=== PATIENT | male | born 1965 | race Caucasian/White ===

== ENCOUNTER 2021-01-13 09:33 | Emergency (ER) | payer OTHER ==
[2021-01-13 11:24] LABS: BASOPHIL 0.2 % (0-2); EOSINOPHIL 0 % (0-5); HCT 50.2 % (42.0-52.0); HGB 17.1 g/dl (13.2-18.0); LYMPHOCYTE 11.6 % (15-48); MCH 30.1 pg (25.0-31.0); MCHC 34.1 g/dL (32.0-36.0); MCV 88.2 fL (78.0-100.0); MONOCYTE 5.3 % (0-12); MPV 10.5 fL (6.0-9.5); NEUTROPHIL 82.5 % (41-80); NRBC 0; PLT 159 K/uL (150-400); RBC 5.69 M/uL (4.70-6.00); RDW 12.6 % (11.5-14.0); WBC 4.5 K/uL (4.0-10.5)
[2021-01-13 11:27] LABS: IRON % SATURATION 10.4 %SAT (20-50)
[2021-01-13 11:32] LABS: LACTIC ACID 1.2 mmol/L (0.4-1.9)
[2021-01-13 11:36] LABS: PRO-BNP 33 pg/mL (<125)
[2021-01-13 12:04] LABS: ALBUMIN 3.8 g/dL (3.4-5.0); BILIRUBIN - TOTAL 0.4 mg/dL (0.2-1.0); BUN/CREAT RATIO (CALC) 17.8 RATIO; C-REACTIVE PROTEIN 0.5 mg/dL (<=0.90); CREATININE 1.01 mg/dL (0.67-1.17); GLOBULIN (CALCULATION) 4.1 g/dL; MAGNESIUM 2.4 mg/dL (1.8-2.4); POTASSIUM 3.9 mmol/L (3.5-5.1); TOTAL PROTEIN 7.9 g/dL (6.4-8.2)
[2021-01-13 14:12] LABS: BILIRUBIN NEGATIVE (NEGATIVE); BLOOD NEGATIVE Ery/uL (NEGATIVE); CLARITY CLEAR (CLEAR); COLOR YELLOW (YELLOW); GLUCOSE (U) NORMAL (NORMAL); LEUKOCYTES NEGATIVE Leu/uL (NEGATIVE); NITRITE NEGATIVE (NEGATIVE); PROTEIN NEGATIVE (NEGATIVE); SPECIFIC GRAVITY 1.015 (1.001-1.030); UROBILINOGEN 0.2 mg/dL (0.2-1.0)
[2021-01-13] MEDS ORDERED: TESSALON PERLE100 M1 PO (14:39)
[2021-01-13] MEDS ORDERED: VENTOLIN HFA18 GM INH (14:39)
[2021-01-13] MEDS ORDERED: ONDANSETRON ODT4 MG PO (14:39)
[2021-01-13] MEDS ORDERED: MEDROL 4MG DOSEP4 MG PO (14:39)
== END 2021-01-13 14:59 | disposition home or self-care (01) ==
LOC: FER 09:33
PROVIDERS: Emergency Medicine
DX: U07.1 COVID-19 (principal)
CPT/HCPCS: 36415; 71260; 80053; 81003; 82728; 83540; 83550; 83605; 83615; 83735; 83880; 84145; 84484; 85025; 86140; 93005; J7030; M0243; Q0244; Q9967

== ENCOUNTER 2021-01-19 16:32 | Emergency (ER) | payer OTHER ==
[~2021-01-19 16:32] MED LIST: MEDROL 4MG DOSEP4 MG PO; ONDANSETRON ODT4 MG PO; TESSALON PERLE100 M1 PO; VENTOLIN HFA18 GM INH
== END 2021-01-19 18:21 | disposition home or self-care (01) ==
LOC: FER 16:32
DX: U07.1 COVID-19 (principal)
CPT/HCPCS: 99283